=== PATIENT | male | born 1995 | race Caucasian/White ===

== ENCOUNTER 2017-02-23 11:57 | Emergency (ER) | payer MEDICAID ==
[2017-02-23 11:58] VITALS: BMI 23.1
[2017-02-23] MEDS ORDERED: Oxycodone/Acetaminophen 5/325 mg Tab PO STA (12:15)
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
--- NOTE | 2017-02-23 14:28 | RAD ---
PROCEDURE: Left Knee Radiographs. HISTORY: Pain. COMPARISON: None. FINDINGS: BONES: Normal. No fracture. JOINTS: Normal. No osteoarthritis. JOINT EFFUSION: None. OTHER FINDINGS: Normal patella IMPRESSION: Normal radiographs of the left knee.
[2017-02-23 14:32] VITALS: BP 144/64; PULSE 68; RESP 16; TEMP 98.8; O2SAT 99
--- NOTE | 2017-02-23 14:37 | RAD ---
PROCEDURE: Radiographs of the Chest and Right Ribs. HISTORY: fall; right rib pain COMPARISON: None available. TECHNIQUE: Frontal radiograph of the chest and multiple oblique radiographs of the right ribs were obtained. FINDINGS: RIGHT RIBS: No fracture or focal lesion visualized. LUNGS: Clear. PLEURA: No pneumothorax or pleural fluid. CARDIOVASCULAR: Normal sized heart. No pulmonary vascular congestion. OTHER FINDINGS: None. IMPRESSION: Unremarkable radiographs of the chest and right ribs. No right rib fracture.
== END 2017-02-23 14:36 | disposition home or self-care (01) ==
LOC: ED 11:57
DX: S29.9XXA Unspecified injury of thorax, initial encounter (principal); W10.8XXA Fall (on) (from) other stairs and steps, initial encounter; Y93.89 Activity, other specified; Y92.89 Other specified places as the place of occurrence of the external cause; M25.562 Pain in left knee
CPT/HCPCS: 71101; 73562; 96372; 99285; J1885

== ENCOUNTER 2017-07-12 16:09 | Emergency (ER) | payer MEDICAID ==
[2017-07-12 16:09] VITALS: BMI 23.1
[2017-07-12 17:01] VITALS: RESP 18; TEMP 97.6; O2SAT 99
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
[2017-07-12 19:14] VITALS: BP 117/76; PULSE 70
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
--- NOTE | 2017-07-13 08:01 | RAD ---
PROCEDURE: Left Knee Radiographs. HISTORY: Pain. COMPARISON: None. FINDINGS: BONES: Normal. No fracture. JOINTS: Normal. No osteoarthritis. JOINT EFFUSION: None. OTHER FINDINGS: None. IMPRESSION: Normal radiographs of the left knee.
== END 2017-07-12 19:16 | disposition home or self-care (01) ==
LOC: ED 16:09
DX: S06.9X9A Unspecified intracranial injury with loss of consciousness of unspecified duration, initial encounter (principal); S83.92XA Sprain of unspecified site of left knee, initial encounter; S63.617A Unspecified sprain of left little finger, initial encounter; W10.8XXA Fall (on) (from) other stairs and steps, initial encounter; Y92.89 Other specified places as the place of occurrence of the external cause

== ENCOUNTER 2018-12-07 15:26 | Outpatient (CLI) | payer MEDICAID | END 2018-12-07 15:27 | disposition home or self-care (01) | LOC: RAD 15:26 | DX: N50.819 Testicular pain, unspecified (principal) ==